=== PATIENT | female | born 1990 | race Caucasian/White ===

== ENCOUNTER 2018-01-02 12:52 | Emergency (ER) | payer OTHER ==
[~2018-01-02] VITALS: Ht 157.5 cm; Wt 72.6 kg
[~2018-01-02 12:52] MED LIST: AMITRIPTYLINE H25 M4; APAP650 PO; CELEXA 10 MG TA10 M1 PO; CELEXA20 MG PO; CIPROFLOXACIN500 M1 PO; CLONAZEPAM 1 MG1 M1; DELTASONE20 MG PO; EFFEXOR 5050 MG/1 T1 PO; EPIPEN 2-P0.3 MG/0.3 IM; FLONASE 0.05%50 MCG NASAL; HYDROCODONE-AP1 EAC6 PO; IBUPROFEN 400400 M2 PO; IBUPROFEN 800800 M1 PO; IBUPROFEN 800800 MG PO; NAPROSYN500 MG PO; NOHOMEMEDICATIONS; NORCO 5-325 TA1 EACH PO; NORFLEX100 MG PO; PENICILLIN VK500 MG PO; PERCOCET 5-3251 EACH PO; PREDNISONE 20 M20 M1 PO; PRENATAL; ROBAXIN500 MG PO; TRINATE TABLET1 TAB PO; ULTRAM 50MG TAB50 MG PO; VENTOLIN HFA 1818 GM INH; VICODIN 5-5001 EACH PO; VICOPROFEN 2001 EAC1 PO; WELLBUTRIN 75 M75 M1 PO; WELLBUTRIN SR150 MG; XANAX 0.5 MG0.5 MG PO; ZOFRAN ODT4 M1 PO; ZPAK PO
[2018-01-02] MEDS ORDERED: LEXAPRO 10 MG T10 M2 PO (13:31)
[2018-01-02] MEDS ORDERED: ADDERALL 10 MG10 MG PO (13:32)
[2018-01-02] MEDS ORDERED: NEURONTIN 300300 M1 PO (13:32)
[2018-01-02] MEDS ORDERED: CLONAZEPAM 0.50.5 M1 PO (13:32)
[2018-01-02] MEDS ORDERED: OXYCONTIN10 M1 PO (13:32)
[2018-01-02] MEDS ORDERED: ASPIRIN325 PO (13:33)
[2018-01-02 13:56] LABS: HEMATOCRIT 37.9 % (37.0-47.0); HEMOGLOBIN 12.6 gm/dL (12.0-15.0); MCH 28.1 pg (26.0-34.0); MCHC 33.4 g/dL (28.0-37.0); MCV 84.2 fL (80.0-100.0); MPV 9.3 fl. (7.2-11.1); NUCLEATED RBCS 0 /100WBC; PLATELET COUNT* 266 thou/uL (150-400); RDW-CV 16.8 % (10.5-14.5); WBC 5.9 thou/uL (4.0-11.0)
[2018-01-02 14:03] LABS: CREATININE 0.7 mg/dL (0.6-1.3)
[2018-01-02 14:07] LABS: ALBUMIN 3.4 g/dL (3.4-5.0); TOTAL BILIRUBIN 0.2 mg/dL (<0.1-1.0); TOTAL PROTEIN 7.5 g/dL (6.4-8.2)
[2018-01-02 14:13] LABS: ABSOLUTE MONOCYTES 0.2 thou/uL (0.0-1.2); ABSOLUTE NEUTROPHILS 2.7 thou/uL (1.6-8.1); PLATELET ESTIMATE ADEQUATE
[2018-01-02 18:11] VITALS: BP 105/59
--- NOTE | 2018-01-21 14:20 | CON ---
[address] [address] CONSULTATION Name: SCAR ENRIQUEZ [id number] Admission: 01/02/18 Attend Phys: Discharge: 01/02/18 Date of : 89 Report #: [id number] THIS REPORT FOR: //name// CC: KASSANDRA physician/PCP Alejandra Haywood DATE OF SERVICE: 01/02/2018 HISTORY OF PRESENT ILLNESS: This 27-year-old female was seen complaining of severe pain of her left leg. She related that she has undergone nonoperative procedures of her left tibia during the past 2 years. She has had procedures performed at [facility], [facility] and the [facility]. She is presently being followed at the [facility]. Three weeks ago, she sustained a fracture of her left tibial metaphysis and underwent an open reduction and internal fixation at . She was seen there for followup last week and had her sutures removed. She was then placed into a long leg cast. She related that she began experiencing increased pain today and presented to the Emergency Room at this institution for evaluation. Upon further questioning, she has been treated for low back pain in an off and on manner since she was a child. She was told that she had scoliosis. She has also noted some numbness into the toes of her left foot. Her present pain is not aggravated by the Valsalva maneuvers such as coughing or sneezing. She stated that she was told that she had a Staph infection by the clinic. She related that she has an appointment to be seen at the Orthopedic Clinic at the [facility] tomorrow. PHYSICAL EXAMINATION: Today revealed a distraught female, who complains of severe pain. Her cast was bivalved. Her leg was then inspected. She has a well-healed surgical wound. There is no redness or inflammatory changes about the wound or her leg. Her tissues are very supple. She has no evidence of compartment syndrome. She complained of marked discomfort with light palpation over the medial aspect of the tibial metaphysis. Motion of her left leg in the cast or splint was painful. Straight leg raising on the right was mildly uncomfortable across her low back. Straight leg raising on the left precipitated severe pain of her left lower leg. She complained of some discomfort over the posterior aspect of her left hip. Her peripheral pulses are normal indicating that her circulatory status appears to be completely normal. This patient was advised that she does not have a compartment syndrome, which would necessitate immediate treatment. She will be continued on a conservative treatment regime. The nursing staff will consult her physician in the Orthopedic Clinic at the [facility] and [place] [address] CONSULTATION Name: SCAR ENRIQUEZ Room: [facility] Isis#: [id number] Admission: 01/02/18 Attend Phys: Discharge: 01/02/18 Date of : 89 Report #: [id number] DIAGNOSES: Radiculopathy versus neuropathy of the left lower leg, thoracolumbar scoliosis, degenerative lumbar disk disease, postop left tibial fracture. <ELECTRONICALLY SIGNED> By: Christofer Capellan MD 01/21/18 1420 1654 [id number] Capellan MD /nt
== END 2018-01-02 18:11 | disposition short-term general hospital (02) ==
LOC: M.ERS 12:52
PROVIDERS: Physician Assistant
DX: G89.18 Other acute postprocedural pain (principal); M79.672 Pain in left foot; J45.909 Unspecified asthma, uncomplicated; Z90.49 Acquired absence of other specified parts of digestive tract; Z88.5 Allergy status to narcotic agent; Z88.8 Allergy status to other drugs, medicaments and biological substances

== ENCOUNTER 2018-03-25 09:42 | Emergency (ER) | payer OTHER ==
[~2018-03-25] VITALS: Ht 160 cm; Wt 76.2 kg
[~2018-03-25 09:42] MED LIST changes: +ADDERALL 10 MG10 MG PO; +ASPIRIN325 PO; +CLONAZEPAM 0.50.5 M1 PO; +LEXAPRO 10 MG T10 M2 PO; +NEURONTIN 300300 M1 PO; +OXYCONTIN10 M1 PO
[2018-03-25] MEDS ORDERED: VENTOLIN HFA 1818 GM INH ×2 (09:53→10:21)
[2018-03-25] MEDS ORDERED: NORCO 5-325 TA1 EACH PO (10:21)
[2018-03-25] MEDS ORDERED: PREDNISONE 20 M20 M1 PO (10:21)
[2018-03-25 11:03] VITALS: BP 115/78
== END 2018-03-25 11:06 | disposition home or self-care (01) ==
LOC: M.ERS 09:42
DX: J45.901 Unspecified asthma with (acute) exacerbation (principal); J45.909 Unspecified asthma, uncomplicated; Z90.89 Acquired absence of other organs; Z98.890 Other specified postprocedural states; Z90.49 Acquired absence of other specified parts of digestive tract; Z88.6 Allergy status to analgesic agent; Z91.010 Allergy to peanuts; Z88.0 Allergy status to penicillin; Z88.8 Allergy status to other drugs, medicaments and biological substances

== ENCOUNTER 2018-05-12 16:57 | Emergency (ER) | payer OTHER ==
[~2018-05-12] VITALS: Ht 160 cm; Wt 77.6 kg
[2018-05-12] MEDS ORDERED: NEURONTIN 300300 M1 PO (17:14)
[2018-05-12] MEDS ORDERED: BACTRIM DS TAB1 EACH PO (17:55)
[2018-05-12] MEDS ORDERED: HYDROCODON-ACE1 EAC7 PO (17:55)
[2018-05-12 18:10] VITALS: BP 116/80
== END 2018-05-12 18:12 | disposition home or self-care (01) ==
LOC: M.ERS 16:57
DX: S80.12XA Contusion of left lower leg, initial encounter (principal); J45.909 Unspecified asthma, uncomplicated; Z90.49 Acquired absence of other specified parts of digestive tract; Z86.14 Personal history of Methicillin resistant Staphylococcus aureus infection; M32.9 Systemic lupus erythematosus, unspecified; Z88.0 Allergy status to penicillin; Z88.5 Allergy status to narcotic agent; Z88.6 Allergy status to analgesic agent; Z88.8 Allergy status to other drugs, medicaments and biological substances; Z91.010 Allergy to peanuts; X58.XXXA Exposure to other specified factors, initial encounter; Y93.89 Activity, other specified; Y92.89 Other specified places as the place of occurrence of the external cause; Y99.8 Other external cause status

== ENCOUNTER 2018-06-05 13:16 | Emergency (ER) | payer OTHER ==
[~2018-06-05] VITALS: Ht 160 cm; Wt 68.5 kg
[~2018-06-05 13:16] MED LIST changes: +BACTRIM DS TAB1 EACH PO; +HYDROCODON-ACE1 EAC7 PO
[2018-06-05 14:11] LABS: AMP/METHAMP Negative (Negative); BARBITURATES Negative (Negative); BENZODIAZEPINES POSITIVE (Negative); COCAINE Negative (Negative); METHADONE Negative (Negative); OPIATES POSITIVE (Negative); PCP Negative (Negative); THC Negative (Negative)
[2018-06-05 15:22] VITALS: BP 115/69
== END 2018-06-05 15:23 | disposition home or self-care (01) ==
LOC: M.ERS 13:16
PROVIDERS: Nurse Practitioner Family
DX: M79.605 Pain in left leg (principal); S09.90XA Unspecified injury of head, initial encounter; J45.909 Unspecified asthma, uncomplicated; Z90.49 Acquired absence of other specified parts of digestive tract; M32.9 Systemic lupus erythematosus, unspecified; Z98.890 Other specified postprocedural states; Z88.5 Allergy status to narcotic agent; Z88.0 Allergy status to penicillin; Z88.6 Allergy status to analgesic agent; Z91.010 Allergy to peanuts; W10.9XXA Fall (on) (from) unspecified stairs and steps, initial encounter; Y93.89 Activity, other specified; Y92.89 Other specified places as the place of occurrence of the external cause; Y99.8 Other external cause status

== ENCOUNTER 2018-06-08 03:51 | Emergency (ER) | payer OTHER ==
[~2018-06-08] VITALS: Ht 162.6 cm; Wt 77.1 kg
[2018-06-08] MEDS ORDERED: CLONAZEPAM 1 MG1 M1 PO (03:58)
[2018-06-08 06:07] VITALS: BP 105/54
== END 2018-06-08 06:09 | disposition home or self-care (01) ==
LOC: M.ERS 03:51
DX: S00.83XA Contusion of other part of head, initial encounter (principal); S80.12XA Contusion of left lower leg, initial encounter; Y04.2XXA Assault by strike against or bumped into by another person, initial encounter; Y93.89 Activity, other specified; Y92.89 Other specified places as the place of occurrence of the external cause; Y99.8 Other external cause status; J45.909 Unspecified asthma, uncomplicated; Z90.49 Acquired absence of other specified parts of digestive tract; Z98.890 Other specified postprocedural states; Z86.14 Personal history of Methicillin resistant Staphylococcus aureus infection; M32.9 Systemic lupus erythematosus, unspecified; Z88.5 Allergy status to narcotic agent; Z88.0 Allergy status to penicillin; Z91.010 Allergy to peanuts; Z88.8 Allergy status to other drugs, medicaments and biological substances

== ENCOUNTER 2018-08-22 03:49 | Inpatient (IN) | payer OTHER ==
[2018-08-22] VITALS (15 sets, daily range): BP systolic 97–120; BP diastolic 44–84
[~2018-08-22] VITALS: Ht 160 cm; Wt 86.6 kg
[~2018-08-22 03:49] MED LIST changes: +CLONAZEPAM 1 MG1 M1 PO
[2018-08-22 04:42] LABS: HEMATOCRIT 43.4 % (37.0-47.0); MCH 28.3 pg (26.0-34.0); MCHC 32.3 g/dL (28.0-37.0); MCV 87.4 fL (80.0-100.0); MPV 8.5 fl. (7.2-11.1); RBC 4.97 mil/uL (4.20-5.00); RDW-CV 18.3 % (10.5-14.5); WBC 11.8 thou/uL (4.0-11.0)
[2018-08-22 04:47] LABS: URINE BILIRUBIN NEGATIVE (Negative); URINE BLOOD NEGATIVE (Negative); URINE CLARITY CLEAR; URINE COLOR YELLOW; URINE GLUCOSE-RANDOM 3+ (Negative); URINE KETONES NEGATIVE (Negative); URINE LEUKOCYTES NEGATIVE (Negative); URINE NITRITE NEGATIVE (Negative); URINE PROTEIN NEGATIVE (Negative); URINE SPECIFIC GRAVITY 1.025 (1.005-1.030); URINE UROBILINOGEN 0.2 E.U./dl (0.2-1.0)
[2018-08-22 04:54] LABS: AMP/METHAMP POSITIVE (Negative); BARBITURATES POSITIVE (Negative); BENZODIAZEPINES Negative (Negative); COCAINE Negative (Negative); METHADONE POSITIVE (Negative); OPIATES POSITIVE (Negative); PCP Negative (Negative); THC POSITIVE (Negative)
[2018-08-22 04:56] LABS: CALCIUM 9.1 mg/dL (8.5-10.1); CREATININE 1.3 mg/dL (0.6-1.3); POTASSIUM 3.3 mmol/L (3.5-5.1)
[2018-08-22 05:01] LABS: ALBUMIN 4.1 g/dL (3.4-5.0); TOTAL BILIRUBIN 0.3 mg/dL (<0.1-1.0); TOTAL PROTEIN 8.4 g/dL (6.4-8.2)
[2018-08-22 05:15] LABS: ACETAMINOPHEN < 2 ug/mL (10-30); ALCOHOL < 10 mg/dL (<10)
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
--- NOTE | 2018-08-22 14:33 | EKG ---
[place] [address] ELECTROCARDIOGRAM REPORT Name: SCAR ENRIQUEZ Room: [address] ADM IN M.R.#: [id number] Admission: 08/22/18 Attend Phys: David Worley MD Discharge: Date of : 89 Report #: [id number] THIS REPORT FOR: //name// [facility] ED Test Date: 2018-08-22 Test Time: 04:39:39 Pat Name: SCAR ENRIQUEZ Department: Room: [facility] Gender: F Art Supervisor: JACOB : 1990 Requested By: Alejandra Solomon Order Number: [id number] MD: Juan Jose Steward Measurements Intervals [place] Rate: 105 P: 67 CT: 142 QRS: -12 QRSD: 87 T: 93 QT: 349 QTc: 462 Interpretive Statements Sinus tachycardia Borderline T wave abnormalities Baseline wander in lead(s) V2 No previous ECG available for comparison Electronically Signed On 08-22-2018 14:33:04 SENIOR OPERATOR by Juan Jose Steward [email or web address] <ELECTRONICALLY SIGNED> By: Juan Jose Steward MD, [facility] 08/22/18 1433 0439 [id number] Juan Jose Steward MD, FAC /EPI
--- NOTE | 2018-08-22 18:39 | NUR ---
PT NOT PROGRESSING TOWARD GOALS. RECEIVED REPORT FROM NAGA AT 1600. PT WAS SLEEPING WITH GRANDMOTHER IN THE ROOM. PT WAS ON ELIZABETH MASK FOR OXYGEN. AT 1820 PT APPEARED BASILIO WITH BLUE LIPS. CHANGED OXYGEN TO NON-REBREATHER. PTS SKIN BECAME PINK AND APPEARED TO BE OXYGENATING. ABG'S ARE BEING CALLED INTO PHYSICIAN.
[2018-08-22 18:40] LABS: BE -6.4 mmol/L (-2 to +3); HCO3 24.6 mmol/L (22.0-26.0); PO2 112.6 mmHg (75.0-100.0)
[2018-08-22 18:41] LABS: PCO2 79.9 mmHg (35.0-45.0); pH 7.107 (7.340-7.450)
[2018-08-22 21:20] LABS: BE -2.8 mmol/L (-2 to +3); HCO3 21.4 mmol/L (22.0-26.0); PCO2 34.8 mmHg (35.0-45.0); pH 7.406 (7.340-7.450)
[2018-08-22 21:21] LABS: PO2 161.7 mmHg (75.0-100.0)
--- NOTE | 2018-08-22 22:04 | NUR ---
RECIEVED REPORT AND ASSUMED CARE OF PT AT 1930. PT INTUBATED AT 1900 PER ED PHYSICAN. PT INTUBATED WITH 7.5 ET TUBE 24 CM AT LIP. RECIEVED ORDERS FOR FENTANYL AND VERSED DRIP FOR SEDATION. PT GIVEN 2 LITER LR FLUID BOLUS PER DR ARMENTA. PORTABLE CHEST XRAY TAKEN TO CONFIRM ET AND OG TUBE PLACEMENT. PT PLACED IN BILATERAL SOFT WRIST RESTRAINTS TO MAINTAIN ET AND OG TUBE. RITCHIE CATHETER PLACED FOR ACCURATE I&O WHILE INTUBATED. 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 UPDATE GIVEN AND EVENTS LEADING UP TO INTUBATION.
--- NOTE | 2018-08-22 22:32 | NUR ---
SPOKE WITH DR PAL REGARDING PULMONARY CONSULT FOR VENTILATOR MANAGEMENT. REPORTED ABG RESULTS ONE HOUR POST INTUBATION AND CURRENT VENTILATOR SETTINGS.REPORTED REASON FOR ADMISSION AND NEED FOR INTUBATION. NO ORDERS RECIEVED.
--- NOTE | 2018-08-22 23:45 | NUR ---
AT 2300 PT SITTING STRAIGHT UP IN BED ATTEMPTING TO SELF EXTUBATE. SPOKE WITH DR PAL AND RECIEVED ORDERS TO INCREASE FENTANYL AND VERSED DRIP.
[2018-08-23] VITALS (28 sets, daily range): BP systolic 88–151; BP diastolic 40–84
--- NOTE | 2018-08-23 00:39 | NUR ---
CALLED DR ARMENTA AND REPORTED CORE TEMP 100.8. RECIEVED ORDERS.
[2018-08-23 02:07] LABS: HEMATOCRIT 29.2 % (37.0-47.0); MCH 28.8 pg (26.0-34.0); MCHC 34.1 g/dL (28.0-37.0); MCV 84.7 fL (80.0-100.0); MPV 8.5 fl. (7.2-11.1); RBC 3.45 mil/uL (4.20-5.00); RDW-CV 18.5 % (10.5-14.5); WBC 8.1 thou/uL (4.0-11.0)
[2018-08-23 02:17] LABS: ALBUMIN 2.9 g/dL (3.4-5.0); CALCIUM 8.1 mg/dL (8.5-10.1); CREATININE 0.7 mg/dL (0.6-1.3); MAGNESIUM 1.7 mg/dL (1.8-2.4); POTASSIUM 3.2 mmol/L (3.5-5.1); TOTAL BILIRUBIN 0.4 mg/dL (<0.1-1.0); TOTAL PROTEIN 5.3 g/dL (6.4-8.2)
[2018-08-23 05:53] LABS: HCO3 22.3 mmol/L (22.0-26.0); PCO2 32.3 mmHg (35.0-45.0); PO2 118.7 mmHg (75.0-100.0); pH 7.457 (7.340-7.450)
--- NOTE | 2018-08-23 14:36 | 2DMMODE ---
[place] [address] 2 D/M-MODE ECHOCARDIOGRAM Name: SCAR ENRIQUEZ Room: [address] IN [facility]#: [id number] Admission: 08/22/18 Attend Phys: David Worley MD Discharge: Date of : 89 Date of Service: 08/23/18 1436 Report #: [id number] THIS REPORT FOR: //name// APPROVED REPORT Study performed: 08/23/2018 11:47:32 EXAM: Comprehensive 2D, Doppler, and color-flow Echocardiogram Patient Location: In-Patient Room #: [facility] Status: routine BSA: 1.80 HR: 89 bpm BP: 119/56 mmHg Rhythm: NSR Other Information Study Quality: Good Indications Dyspnea 2D Dimensions IVSd: 8.25 (7-11mm) LVOT Diam: 19.92 (18-24mm) LVDd: 38.14 mm PWd: 8.46 (7-11mm) LVDs: 24.62 (25-40mm) Aortic Root: 27.13 mm Volumes Left Atrial Volume (Systole) LA ESV Index: 24.20 mL/m2 Aortic Valve AoV Peak David.: 1.22 m/s AO Peak Gr.: 5.98 mmHg LVOT Max P.69 mmHg AO Mean Gr.: 3.15 mmHg LVOT Mean P.38 mmHg LVOT Max V: 1.19 m/s AO V2 VTI: 21.15 cm LVOT Mean V: 0.69 m/s ZOË (VTI): 3.16 cm2 LVOT V1 VTI: 21.44 cm Mitral Valve E/A Ratio: 1.96 MV Decel. Time: 215.48 ms MV E Max David.: 1.10 m/[place] [address] 2 D/M-MODE ECHOCARDIOGRAM Name: SCAR ENRIQUEZ Room: [address] IN [facility]#: [id number] Admission: 08/22/18 Attend Phys: David Worley MD Discharge: Date of : 91 Date of Service: 08/23/18 1436 Report #: [id number] MV PHT: 62.49 ms MVA (PHT): 3.52 cm2 TDI E/Lateral E': 5.24 E/Medial E': 6.47 Medial E' David.: 0.17 m/s Lateral E' David.: 0.21 m/s Pulmonary Valve PV Peak David.: 0.91 m/s PV Peak Gr.: 3.33 mmHg Left Ventricle The left ventricle is normal size. There is normal LV segmental wall motion. There is normal left ventricular wall thickness. Left ventricular systolic function is normal. The left ventricular ejection fraction is within the normal range. LVEF is 55-60%. The left ventricular diastolic function is normal. Right Ventricle The right ventricle is normal size. The right ventricular systolic function is normal. Atria The left atrium size is normal. The right atrium size is normal. Aortic Valve The aortic valve is normal in structure. No aortic regurgitation is present. There is no aortic valvular stenosis. Mitral Valve The mitral valve is normal in structure. There is no mitral valve regurgitation noted. No evidence of mitral valve stenosis. Tricuspid Valve The tricuspid valve is normal in structure. Trace tricuspid regurgitation. Unable to assess PA pressure. Pulmonic Valve Pulmonic valve is not well visualized. There is no pulmonic valvular regurgitation. Great Vessels The aortic root is normal in size. IVC is normal in size and collapses >50% [place] [address] 2 D/M-MODE ECHOCARDIOGRAM Name: SCAR ENRIQUEZ Room: [address] IN [facility]#: [id number] Admission: 08/22/18 Attend Phys: David Worley MD Discharge: Date of : 89 Date of Service: 08/23/18 1436 Report #: [id number] Pericardium There is no pericardial effusion. <Conclusion> Left ventricular systolic function is normal. The left ventricular ejection fraction is within the normal range. <ELECTRONICALLY SIGNED> By: René Garland MD, FACC 08/23/18 1436 1436 1436 René Garland MD, FACC /INF
[2018-08-24] VITALS (11 sets, daily range): BP systolic 101–145; BP diastolic 58–91
[2018-08-24 04:03] LABS: ALBUMIN 2.8 g/dL (3.4-5.0); CALCIUM 8.5 mg/dL (8.5-10.1); CREATININE 0.8 mg/dL (0.6-1.3); POTASSIUM 4.6 mmol/L (3.5-5.1); TOTAL BILIRUBIN 0.2 mg/dL (<0.1-1.0); TOTAL PROTEIN 6.2 g/dL (6.4-8.2)
[2018-08-24 04:06] LABS: NUCLEATED RBCS 0 /100WBC
[2018-08-24 04:38] LABS: MCH 28.2 pg (26.0-34.0); MCHC 32.6 g/dL (28.0-37.0); MCV 86.4 fL (80.0-100.0); MPV 9.4 fl. (7.2-11.1); PLATELET COUNT* 247 thou/uL (150-400); RBC 4.29 mil/uL (4.20-5.00); RDW-CV 19.2 % (10.5-14.5); WBC 9.2 thou/uL (4.0-11.0)
--- NOTE | 2018-08-24 05:02 | NUR ---
PT. PROGRESSING TOWARDS GOALS. PRECEDEX GTT AT MAX DOSE, PT. STILL CONTINUES TO HAVE EPISODES OF RESTLESSNESS/AGITATION. BILAT SOFT WRIST RESTRAINTS REMAIN IN PLACE. OG TO LIS. VERSED GTT AT 4MG/HR, FENTANYL GTT AT 25MCG/HR. IVF REMAIN INFUSING, WILL CONTINUE TO MONITOR.
[2018-08-24 05:29] LABS: HEMOGLOBIN 12.1 gm/dL (12.0-15.0)
[2018-08-24 06:02] LABS: ABSOLUTE LYMPHOCYTES 0.8 thou/uL (0.8-5.3); ABSOLUTE MONOCYTES 0.3 thou/uL (0.0-1.2); ABSOLUTE NEUTROPHILS 8.1 thou/uL (1.6-8.1); ANISOCYTOSIS 1+; PLATELET ESTIMATE ADEQUATE; POIKILOCYTOSIS 1+
[2018-08-24 10:20] LABS: BE -5.3 mmol/L (-2 to +3); HCO3 18.4 mmol/L (22.0-26.0); PCO2 30.6 mmHg (35.0-45.0); PO2 122.3 mmHg (75.0-100.0); pH 7.398 (7.340-7.450)
--- NOTE | 2018-08-24 10:46 | NUR ---
PT EXTUBATED 1040 AM. PT CURRENTLY ON PRECEDEX FOR AGGITATION. PT NO CURRENLTY ON OXYGEN, MAINTAINING AIRWAY. MOTHER AND GRANDMOTHER AT BEDSIDE
--- NOTE | 2018-08-24 19:28 | NUR ---
PT NOT PROGRESSING TOWARD GOALS. PT CURRENTLY OFF OF PRECEDEX. PT VERY SAD AND AGITATED WITH FAMILY. FAMILY ASKED TO GIVE THE PT TIME TO REST THIS EVENING. FAMILY STATED THEY WOULD BE BACK IN THE MORNING. PT STATED THEY ARE WORRIED PT WILL LEAVE AMA AND NOT GO TO REHAB FACILITY. PT ASKS FOR NARCOTICS. PT WAS GIVEN ATIVAN FOR AGGITATION. PT STILL MAKING STATEMENTS OF LEAVING AMA TOMORROW.
[2018-08-25] VITALS (12 sets, daily range): BP systolic 109–141; BP diastolic 57–93
[2018-08-25 04:09] LABS: ABSOLUTE LYMPHOCYTES 1.1 thou/uL (0.8-5.3); ABSOLUTE NEUTROPHILS 9.5 thou/uL (1.6-8.1); BASOPHILS 0.3 %; EOSINOPHILS 0.1 %; HEMATOCRIT 36.3 % (37.0-47.0); HEMOGLOBIN 11.9 gm/dL (12.0-15.0); LYMPHOCYTES 9.5 %; MCH 27.9 pg (26.0-34.0); MCHC 32.7 g/dL (28.0-37.0); MCV 85.4 fL (80.0-100.0); MONOCYTES 8.3 %; MPV 9.1 fl. (7.2-11.1); NUCLEATED RBCS 0 /100WBC; PLATELET COUNT* 280 thou/uL (150-400); POLYS 81.8 %; RBC 4.25 mil/uL (4.20-5.00); WBC 11.6 thou/uL (4.0-11.0)
[2018-08-25 04:25] LABS: ALBUMIN 2.9 g/dL (3.4-5.0); CALCIUM 8.4 mg/dL (8.5-10.1); CREATININE 0.8 mg/dL (0.6-1.3); MAGNESIUM 1.9 mg/dL (1.8-2.4); POTASSIUM 4.3 mmol/L (3.5-5.1); TOTAL BILIRUBIN 0.2 mg/dL (<0.1-1.0); TOTAL PROTEIN 6.1 g/dL (6.4-8.2)
--- NOTE | 2018-08-25 06:43 | NUR ---
Pt anxious, tearful, and agitated during early part of manager sourcing. Pt using call light frequently, asking for something to make her sleep. Pt argumentative, asking multiple questions rapid-fire. Precedex started, and soon titrated to max dose. Pt requested phone to call "boyfriend/dealer" so she could "get some drugs" since Precedex was "not working." Pt attempted to call at least two people, then slammed the phone down in apparent frustration. States no one will come to "pick me up." Pt son afterward was asleep, snoring. VSS. Pt awakens easily to touch or verbal stimulation, but now oriented to self only. (Prior to Precedex, pt A&O X4.) On 2L O2. Not progressing toward goals.
--- NOTE | 2018-08-25 08:25 | NUR ---
8915 ASSUMED CARE OF PATIENT. PLEASE SEE DOCUMENTED ASSESSMENT. PT IS ON PRECEDEX DRIP. SINUS BILL
--- NOTE | 2018-08-25 08:26 | NUR ---
PT ADMITS TO NECK DISCOMFORT. GIVEN SCHEDULED MEDS. MOTHER CALLED TO CHECK ON PT
--- NOTE | 2018-08-25 09:59 | NUR ---
12 LEAD EKG DONE AND REVEALS SINUS RHYTHM
--- NOTE | 2018-08-25 10:15 | NUR ---
DR DEVI TO SEE PATIENT. PATIENT CAN GO TO TELEMETRY WHEN OFF OF PRECEDEX. TITRATING PRECEDEX. DR FRAZIER TO SEE PATIENT
--- NOTE | 2018-08-25 11:14 | CON ---
[address] [address] CONSULTATION Name: ZOESCAR CHAKRABORTY Room: [address] IN M.R.#: [id number] Admission: 08/22/18 Attend Phys: David Worley MD Discharge: Date of : 89 Report #: [id number] THIS REPORT FOR: //name// CC: KASSANDRA physician/PCP David Worley CONSULT REQUESTED BY: Hospitalist Service. INDICATION FOR CONSULTATION: Acute respiratory failure secondary to drug overdosage. The patient had significant hypercapnia initially. HISTORY OF PRESENT ILLNESS: A 27-year-old female, past medical history does include a history of polysubstance abuse as well as bronchial asthma. It is not known to me as to whether she smokes. The patient was admitted yesterday with altered mental status. Initially, in fact, she did not require to be endotracheally intubated as she already was improving, in fact was maintaining O2 saturation on 2 liters oxygen via nasal cannula. The patient's mental status subsequently declined. Note that the patient is reported to have taken methadone shortly prior to getting admitted here and therefore the possibility that this could have been secondary to delayed absorption of methadone was considered. Alternately, the possibility that the patient may have consumed more drugs while she was here was also considered. Note that on presentation, she had tested positive for opiates, methadone, barbiturates, amphetamines as well as marijuana. Her alcohol level, however, was negative. Upon developing altered mental status again yesterday, the patient did have an arterial blood gas performed, which showed hypercapnia with a pH of 7.107 and pCO2 rising to 80. The patient at that time was endotracheally intubated. Overnight, the patient has been on the ventilator. She has been oxygenating and ventilating adequately. She is maintaining blood pressure, although the patient's blood pressure has been on the lower side. She had a high-grade fever overnight up to 38.2 degrees Celsius. The patient is actively bronchospastic at the time of my examination. The patient is on the ventilator and therefore is unable to provide a further history or review of systems. No family is immediately available either. PAST MEDICAL HISTORY: Bronchial asthma; polysubstance abuse, has been to a methadone clinic in the past; 3, para 2; tonsillectomy; ; appendectomy; other orthopedic surgeries; C. difficile colitis; cholecystectomy; multiple left leg surgery. She was tested positive for MRSA colonization in 10/2017. Depression and anxiety. The patient has had a previous admission to this hospital with severe laryngeal spasm. 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 Possible history of lupus and also [place] [address] CONSULTATION Name: ZOESCAR Room: [address] IN [facility].#: [id number] Admission: 08/22/18 Attend Phys: David Worley MD Discharge: Date of : 89 Report #: [id number] SOCIAL HISTORY: She has a history of polysubstance abuse as mentioned above. It is not known to me as to whether and if so, how much alcohol the patient consumes. She is not reported to be under the influence of alcohol at the time of presentation, also not known as to whether she smokes. ALLERGIES: PENICILLINS, PEANUTS, COMPAZINE, MORPHINE, TRAMADOL AND KETOROLAC are mentioned as allergies. Note that the patient tolerates cephalosporins without any reactions. Note also that she has tolerated fentanyl without any reactions and does have a history of other opiate use. CURRENT MEDICATIONS: List in [facility] reviewed. HOME MEDICATIONS: Previous list is in [facility], reviewed. Obviously, the patient is not able to update the list. Clonazepam is noted to have been prescribed for her in addition to her possibly being at a Methadone Clinic. FAMILY HISTORY: There is no pertinent family history known at this time. PHYSICAL EXAMINATION: GENERAL: She is sedated with Versed 10 and fentanyl at 150. She still is moving all extremities, is obviously bronchospastic. VITAL SIGNS: Has a pulse of 90 and a blood pressure of 116/50. She is saturating 99%. She is on 35% FiO2 with a tidal volume of 550 and AC rate set at 15. She is not overbreathing the ventilator. The PEEP is set at 5. She has had a high-grade fever overnight with a temperature rising to 38.2. She has a low grade fever of 37.5 now. HEENT: Head is normocephalic and atraumatic. Pupils are bilaterally constricted, but reactive. There is an endotracheal tube in place, which is low and close to the kera. NECK: Does not show raised JVP, asymmetry, mass or lymph nodes. CHEST: Symmetrical expansion on inspection and palpation. On auscultation, loud wheezes, inspiratory as well as expiratory, more expiratory wheezes are heard. HEART: Regular. There is no murmur. ABDOMEN: Soft and nontender. EXTREMITIES: Lower extremities show no edema and no calf tenderness on the right side. There is 1+ edema on the left side. There is old injury to the left leg noted. There is no obvious calf tenderness. SKIN: Dry and intact. NEUROLOGICAL: She moves all extremities bilaterally equally and spontaneously with no focal deficit identified. The patient has had chest x-rays performed. There are vague radiopaque densities noted bilaterally. Therefore, I cannot completely rule out an increase in vascular congestion or infiltrates; low large infiltrates are seen, however, the endotracheal tube is at the kera. The x-ray of the abdomen is consistent with an ileus, likely secondary to narcotic use. There is also significant [place] [address] CONSULTATION Name: ZOESCARSULTANA HALEY Room: [address] IN [facility].#: [id number] Admission: 08/22/18 Attend Phys: David Worley MD Discharge: Date of : 89 Report #: [id number] LABORATORY DATA: The patient's arterial blood gases, which initially showed acute hypercarbic respiratory failure with subsequent development of a metabolic alkalosis secondary to hypokalemia also in [facility], reviewed. CBC, which does show a drop in hemoglobin, likely dilutional as well as chemistries, which are consistent with adequate hydration, but hypokalemia and hypomagnesemia in [facility] reviewed. Toxicology screen positive for multiple agents as mentioned. Urinalysis is negative except is positive for glucose. ASSESSMENT AND PLAN: 1. Acute hypercarbic respiratory failure secondary to drug overdosage. I recommend that she go ahead and start Precedex and gradually increasing it to the max dose of 1.4. Recommend administering Precedex without bolus. Once the patient has been started on Precedex, I recommended backing off on fentanyl and Versed infusions to the extent possible; however, the patient does appear to continue to need these for now. Tomorrow morning, the plan is to keep the patient on max doses of Precedex and attempt to reduce Versed and fentanyl further, however, I feel that we may not be able to discontinue them with a low dose of Versed and fentanyl, and max doses of Precedex. The plan is to proceed to a weaning trial tomorrow morning and evaluating as to where we stand. 2. Drug overdosage/polysubstance abuse. See discussion above. 3. Severe bronchospasm. The patient is actively bronchospastic at this time; therefore, in addition to continuing with nebulized bronchodilators as currently prescribed, I will go ahead and treat her with solo Medrol as well. In fact, we will go ahead and add Brovana also. 4. Fever, high grade, could be drug induced, no obvious source of infection. Note, that she has a history of C. difficile colitis as well as MRSA colonization in the past. She is on ceftriaxone and vancomycin. I will continue the same for now. Considering her previous history of C. difficile colitis as well as the fact that I cannot completely rule out aspiration, I will go ahead and add Flagyl. We will reevaluate antibiotics tomorrow. 5. Ileus/gastric distention. The patient's x-ray of the abdomen is consistent with narcotic-induced ileus. For now, however, she does need fentanyl, although I will try to cut back the dose as mentioned above. We will keep the NG at suction except when she gets meds. I recommend not administering tube feeds at this time for this reason. 6. Hypokalemia and hypomagnesemia in addition to evaluating her pH. This does appear to be contributing to ileus as well. This is already being addressed. Recommend administering both magnesium and potassium intravenously. 7. Asymmetrical edema, more on the left leg, could be secondary to previous injury. Regardless, we will do venous Dopplers and we will also check an echo. 8. Fluid and electrolytes. In order to avoid development of fluid overload and also to avoid development of hypernatremia, I switched her over to D5 half normal at 75. Note the patient's blood pressure has been on the lower side, hopefully this will improve with changes and sedation as mentioned above. However, if the patient is hypotensive, then certainly she could be given more [facility] [address] [place] [address] CONSULTATION Name: SCAR ENRIQUEZ Room: [address] IN [facility]#: [id number] Admission: 08/22/18 Attend Phys: David Worley MD Discharge: Date of : 89 Report #: [id number] fluids. She is ventilating and oxygenating adequately. 9. Deep vein thrombosis prophylaxis. Suggest SCDs. If H and H remains stable, then suggest considering Lovenox. There has been no drop in H and H since yesterday. This is likely dilutional. 10. Gastrointestinal prophylaxis. We will start Protonix intravenously for now. The patient is critically ill at this time. Total time spent providing critical care to this patient today is about 1 hour. <ELECTRONICALLY SIGNED> By: Amando Rollins MD 08/25/18 1114 1134 [id number] Ly MD /nt
--- NOTE | 2018-08-25 11:20 | NUR ---
OFF PRECEDEX. PT THREATENED TO GO AMA UNTIL INFORMED OF WEATHER. PT CAN TRANSFER TO TELE NOW THAT SHE IS OFF OF PRECEDEX. PT ALSO ON ROOM AIR. REGULAR DIET RESUMED. CALLED PTS GRANDFATHER PER HER REQUEST. TALKED TO CASE MANAGEMENT REGARDING PATIENT STATUS
--- NOTE | 2018-08-25 15:51 | NUR ---
PATIENT GIVEN FENTANYL FOR PAIN RATED "9"
--- NOTE | 2018-08-25 17:18 | NUR ---
UP TO VOID. REFUSES TO BRUSH TEETH. GABBIE CARE DONE
--- NOTE | 2018-08-25 18:13 | NUR ---
PATIENT PROGRESSING TOAWARDS GOALS. OFF OF PRECEDEX. TITRATED TO ROOM AIR. RITCHIE OUT AND HAS VOIDED. PT IS UNHAPPY AND OFTEN THREATENS TO LEAVE AMA. DOES NOT WANT TO EAT. VSS. PT IS TELE STATUS. MOTHER, AUNT, AND GRANDFATHER HAVE VISITED
[2018-08-26] VITALS (7 sets, daily range): BP systolic 118–134; BP diastolic 70–80
--- NOTE | 2018-08-26 01:08 | NUR ---
Pt chief complaints have been inability to sleep and headache. Pt vacillates between being tearful and angry, demanding something "to make her sleep." VSS. Has had intermittent nausea with dry heaves, also c/o severe sore throat and pain to head and neck. Pt also has intermittent non-productive cough. Have had multiple discussions with pt regarding her condition and ordered treatments. Paged Dr. Worley, physician sterile preparation technician, and received orders for increased dose and frequency of lorazepam based on pts symptoms and elevated CIWA score (headache, anxiety, agitation, diaphoresis, tachycardia, and elevated BP). Pt c/o pain to LH IV site. Multiple attempts made to establish additional IV site with no success. Have continued to utilize IV. Pt has made multiple threats to leave AMA is she does not receive something to make her sleep. Pt had called Pradeep Razo earlier on the phone, but reports he said he will not come get her. At this time pt attempting multiple phone calls, including to Pradeep, but getting no answers. Pt becoming more verbally belligerent with RN insisting on getting the Precedex she had last night, or she is leaving. Pt has no belongings or clothing with her, and has no means to pay for taxi, Uber, or other method of transportation. Pt also made aware of the cold temperature outside, currently 16 F. Currently pt is alert, oriented X4. HR 94, last BP 124/76. Not diaphoretic or SOA. C/O headache, sore throat, and inability to sleep. Pt just removed pulseox monitor, BP cuff, and SCDs. Pt still attempting to make phone calls to get a ride to no avail. Will continue to monitor.
--- NOTE | 2018-08-26 10:23 | NUR ---
0700 ASSUMED CARE OF PATIENT. SEE DOCUMENTED ASSESSMENT. PT IS TELE STATUS IN THE ICU
--- NOTE | 2018-08-26 12:45 | NUR ---
patient states she is having a panic attack. see CIWA SCORING
--- NOTE | 2018-08-26 14:26 | NUR ---
SW received call from spiritual care regarding pt discussing that she was scared and wanted possible support group/resources and pt had mentioned that she wanted resources in [place]. SW met with pt nurse and provided lists of drug addiction, emotional support, and referral list for assistance on recovering; not specifically [place], but some of the numbers are national numbers. Pt nurse said she would provide to pt as needed.
--- NOTE | 2018-08-26 14:31 | NUR ---
report to bronson lyman. patient to move to room 204
--- NOTE | 2018-08-26 14:55 | NUR ---
TRANSFERRED TO 204 PER WHEELCHAIR WITH ALL RECORDS AND BELONGS. GRANDFATHER NOTIFIED OF TRANSFER
--- NOTE | 2018-08-26 18:29 | NUR ---
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 EQUIPMENT ASSEMBLER DOES THE WINDOW OPEN SHE WANTS TO JUMP OUT THE WINDOW TO KILL HERSELF GROUND SUPPORT EQUIPMENT ASSEMBLER NOTIFIED THIS NURSE WHO NOTIFIED FORM RAISER THIS NURSE SPOKE WITH PT REGARDING STATEMENT STATED THAT WE TAKE THESE THREATS SERIOUSLY PT BECAME UPSET DEFENSIVE SAID SHE WAS NOT SERIOUS, NOTIFIED PHYSICIAN REGARDING STATEMENTS AND PT WANTING TO LEAVE AMA PHYSICIAN ORDERED PSYCH EVAULUATION AND SITTER ROOM STRIPPED PER POLICY PT AGITATED THREATENING STAFF SECURITY NOTIFIED WHO CAME IN ROOM WAS ABLE TO CALM PT GAVE PT XANAX EDUCATED PT THAT RESTRAINTS WILL BE USED IF PT BECOMES VIOLENT PT CALM AND SITTING ON BED SITTER IN WITH PT, PT IS ST ON THE MONITOR, WILL CONTINUE TO MONITOR
--- NOTE | 2018-08-26 22:46 | NUR ---
Pt displaying various mood swings: calm at beginning of shift; angry, and belligerent with sitter and RN shortly afterward; then calm at time of telepsych consult call. Prior to consult, pt had removed monitoring analyst and gown. Pt allowed monitor to be placed but refused gown. Soon afterward she removed monitor again. Pt repeated the following statements multiple times that she is leaving and, "You can't hold me here! I am going to call my securities attorney. I need to go to rehab in [place]. I just want to sleep. I need pain medicine. I don't want to kill myself, I just want to leave!" Telepsych consult completed. Received fax with recommendations. Paged Dr. Mcnamara and briefed him on recommendations including suggestions for medications. Orders submitted. Pt aware that she will remain in hospital until inpatient psychiatry placement is made. Pt states she needs rehab and wants to go to [place] (where she had been before). Pt appears calm at this time. Will continue to monitor.
[2018-08-27 00:25] VITALS: BP 143/83
[2018-08-27 03:38] VITALS: BP 118/55
--- NOTE | 2018-08-27 05:12 | NUR ---
Annabelle reports that pt experienced hallucinations around midnight, stating pt was talking to a eri bear that pt states was "talking to her." Pt asked if sitter could hear it. Sitter reports no other signs of hallucinations for remainder of shift. Pt has remained calm and appeared to be asleep for most of shift. Pt continues to refuse monitor and gown, but cooperative otherwise. Pt ate peanut butter and mikaela crackers, vanilla pudding, and drank some apple juice and a carton of milk per request; which is the most she has eaten since admission on 08/22. Pt reports that she plans to contact her diabetes trainer soon and states that she will be leaving the hospital later today. Also states she wants to go to rehab. VSS. Will contiue to monitor.
[2018-08-27 07:29] LABS: ALBUMIN 3.1 g/dL (3.4-5.0); CALCIUM 8.8 mg/dL (8.5-10.1); CREATININE 0.6 mg/dL (0.6-1.3); MAGNESIUM 2.1 mg/dL (1.8-2.4); POTASSIUM 3.4 mmol/L (3.5-5.1); TOTAL BILIRUBIN 0.2 mg/dL (<0.1-1.0); TOTAL PROTEIN 6.1 g/dL (6.4-8.2)
[2018-08-27 08:00] VITALS: BP 125/66
[2018-08-27 09:45] LABS: HEMATOCRIT 35.5 % (37.0-47.0); HEMOGLOBIN 11.8 gm/dL (12.0-15.0); MCH 28.1 pg (26.0-34.0); MCHC 33.2 g/dL (28.0-37.0); MCV 84.5 fL (80.0-100.0); MPV 8.3 fl. (7.2-11.1); RBC 4.2 mil/uL (4.20-5.00); RDW-CV 18.9 % (10.5-14.5)
[2018-08-27 12:00] VITALS: BP 114/61
[2018-08-27 16:00] VITALS: BP 137/65
--- NOTE | 2018-08-27 16:32 | NUR ---
Spoke with [facility] per Dr. Mcnamara and patient request. Faxed information. They [place].
--- NOTE | 2018-08-27 18:07 | NUR ---
PATIENT RESTING IN BED WITH 1:[address] FOR SI[address] PATIENT IS AWAITING TRANSFER TO [facility] FOR CONTINUED TREATMENT. JACKY DENIES [facility] SI AND HAS NO PLAN BUT DENIES PLAN. BEVERLEY HAS EXPRESSED THE DESIRE TO DISCHARGE TO HOME AND HAS MADE THE COMMENT THAT SHE WANTS TO GET OUT OF HERE SO SHE CAN DO HER DRUGS AND DOESNT WANT ANYTHING TO DO WITH TREATMENT. VITAL SIGNS STABLE ANDPAITNE IN NOAPPARENT SIGNS OF DISTRESS. HOURLY ROUNDING AND 1;1 SITTER DFOR PATIENT SAFETY CONTINUED.
[2018-08-27 20:00] VITALS: BP 122/55
[2018-08-28] VITALS: BP 111/57
[2018-08-28 03:56] VITALS: BP 103/52
--- NOTE | 2018-08-28 04:30 | NUR ---
ASSUMED PT CARE AT 1930. NURSING ASSESSMENT COMPLETED AT START OF SHIFT. EXERCISE PHYSIOLOGIST IN PLACE, TRACING SINUS RHYTHM/SINUS BRADICARDIA THIS SHIFT. PT C/O OPIATE W/D SYMPTOMS THIS SHIFT: NAUSEA, RUNNY NOSE, CHILLS, BODY ACHES. CLONIDINE ADMINISTERED X1. SITTER IN ROOM FOR SUICIDAL IDEATION. HOURY ROUNDING COMLPLETED. CALL LIGHT WITHIN REACH.
--- NOTE | 2018-08-28 10:19 | NUR ---
Pt to have abd US tomorrow. Per weekend report, telepsych assessment completed, Pt needs inpt psych. Updated Dr Phipps. Following for disposition.
--- NOTE | 2018-08-28 11:57 | NUR ---
DIRECTOR REPORT INFORMED THAT THE PATIENT IS MEDICALLY STABLE FOR INPATIENT PSYCH. CONTACTED [facility] AND [facility] AND NEITHER HAD BEDS AVIAILABLE AT THIS TIME. [facility] 'MAY HAVE BEDS AVAILABLE THIS AFTERNOON (SENT REFERRAL). [facility] 'AWAITING DISCHARGES' (SENT REFERRAL). [facility] 'SHOULD HAVE BEDS AVAILABLE THIS AFTERNOON' (SENT REFERRAL). [facility] 'CALL AFTER 1500. MAY HAVE BEDS AVAILABLE AT THAT TIME'. CM WILL REMAIN AVAILABLE TO ASSIST AND FOLLOW NEEDED.
[2018-08-28 16:18] VITALS: BP 93/40
--- NOTE | 2018-08-28 18:15 | NUR ---
PATINET RESTING IN BED. UP STANDBY IN ROOM AND 1:1 SITTER FOR PATINET SAFETY. VITAL SIGNS STABLE AND PATINET IN NO APPARENT DISTRESS AT THIS TIME. PATINET HAS BEEN ACCEPTED TO [facility] AND TRANSPORTAION IS TO BE PROVIDED AT 11:00 PM TONIGHT.PATIET WAS REASSESSED BY PSYCHIATRY TODAY AND THE RECOMMENDATION WAS FOR INPATIENT PSYCH. HOURLY ROUNDING COMPLETED FOR PATINET SAFETY.
[2018-08-28] MEDS ORDERED: SSD25 GM TOP (18:26)
[2018-08-28] MEDS ORDERED: CLONIDINE0.1 PO (18:27)
[2018-08-28] MEDS ORDERED: PREDNISONE 20 M20 MG PO (18:27)
[2018-08-28] MEDS ORDERED: LEVAQUIN 500 M500 M2 PO (18:28)
[2018-08-28 18:50] VITALS: BP 93/40
[2018-08-28 19:30] VITALS: BP 126/81
[2018-08-28 19:42] VITALS: BP 126/81
--- NOTE | 2018-08-28 19:50 | NUR ---
RECIEVED REPORT AND ASSUMED CARE OF PT AT 1930. PT PLEASANT AND COOPERATIVE, TEARFULL AT TIMES. PT UPDATED ON TRANSFER TO [address] [place] [address].
--- NOTE | 2018-08-28 23:02 | NUR ---
PT TAKEN BY [facility] AT 2300 FOR TRANSFER TO [address] [place] [address] FOR INPATIENT TREATMENT. ALL PAPERWORK SIGNED. PT LEFT AT 2300 ON [place] PER PARAMEDICS.
== END 2018-08-28 23:00 | DRG 917 ==
LOC: M.ERS 03:49 → M.TBA-ER 05:30 → M.ICU 05:30 → M.2W 08-26 14:45
PROVIDERS: Family Medicine; Internal Medicine; Internal Medicine Critical Care Medicine; Personal Emergency Response Attendant; ADMIT Family Medicine
PROC: 5A1945Z Respiratory Ventilation, 24-96 Consecutive Hours (ICD-10-PCS; principal; 2018-08-22)
PROC: 0BH17EZ Insertion of Endotracheal Airway into Trachea, Via Natural or Artificial Opening (ICD-10-PCS; principal; 2018-08-22)
DX: T40.3X1A Poisoning by methadone, accidental (unintentional), initial encounter (principal); J96.02 Acute respiratory failure with hypercapnia; K56.7 Ileus, unspecified; E44.0 Moderate protein-calorie malnutrition; T40.601A Poisoning by unspecified narcotics, accidental (unintentional), initial encounter; T42.3X1A Poisoning by barbiturates, accidental (unintentional), initial encounter; J45.909 Unspecified asthma, uncomplicated; F32.9 Major depressive disorder, single episode, unspecified; F41.9 Anxiety disorder, unspecified; K31.89 Other diseases of stomach and duodenum; E87.6 Hypokalemia; E83.42 Hypomagnesemia; F17.210 Nicotine dependence, cigarettes, uncomplicated; G89.29 Other chronic pain; M79.606 Pain in leg, unspecified; Z90.49 Acquired absence of other specified parts of digestive tract; Z88.0 Allergy status to penicillin; Y92.89 Other specified places as the place of occurrence of the external cause; Z88.8 Allergy status to other drugs, medicaments and biological substances; Z88.6 Allergy status to analgesic agent; Z91.010 Allergy to peanuts; Z68.33 Body mass index [BMI] 33.0-33.9, adult; Z79.899 Other long term (current) drug therapy; Z23 Encounter for immunization

== ENCOUNTER 2018-09-14 20:30 | Inpatient (IN) | payer OTHER ==
[~2018-09-14] VITALS: Ht 160 cm; Wt 87.3 kg
[~2018-09-14 20:30] MED LIST changes: +CLONIDINE0.1 PO; +LEVAQUIN 500 M500 M2 PO; +PREDNISONE 20 M20 MG PO; +SSD25 GM TOP
[2018-09-14 20:31] VITALS: BP 126/78
[2018-09-14 20:55] LABS: PCO2 45.9 mmHg (35.0-45.0); PO2 61.3 mmHg (75.0-100.0)
[2018-09-14 20:56] LABS: pH 7.257 (7.340-7.450)
[2018-09-14 20:59] LABS: URINE BILIRUBIN NEGATIVE (Negative); URINE BLOOD NEGATIVE (Negative); URINE CLARITY CLEAR; URINE COLOR YELLOW; URINE GLUCOSE-RANDOM 3+ (Negative); URINE KETONES NEGATIVE (Negative); URINE LEUKOCYTES-REFLEX NEGATIVE (Negative); URINE NITRITE-REFLEX NEGATIVE (Negative); URINE PROTEIN 1+ (Negative); URINE SPECIFIC GRAVITY 1.015 (1.005-1.030); URINE UROBILINOGEN 0.2 E.U./dl (0.2-1.0)
[2018-09-14 21:01] LABS: HEMATOCRIT 41.5 % (37.0-47.0); HEMOGLOBIN 13.2 gm/dL (12.0-15.0); MCH 28.4 pg (26.0-34.0); MCHC 31.7 g/dL (28.0-37.0); MCV 89.5 fL (80.0-100.0); MPV 9.1 fl. (7.2-11.1); NUCLEATED RBCS 0 /100WBC; PLATELET COUNT* 283 thou/uL (150-400); RBC 4.64 mil/uL (4.20-5.00); RDW-CV 18.2 % (10.5-14.5); WBC 10.1 thou/uL (4.0-11.0)
[2018-09-14 21:09] LABS: AMP/METHAMP Negative (Negative); BARBITURATES Negative (Negative); BENZODIAZEPINES POSITIVE (Negative); COCAINE Negative (Negative); METHADONE Negative (Negative); OPIATES POSITIVE (Negative); PCP Negative (Negative); THC POSITIVE (Negative)
[2018-09-14 21:10] LABS: ANION GAP 12 mmol/L (7-16); BUN 11 mg/dL (7-18); CALCIUM 8.4 mg/dL (8.5-10.1); CHLORIDE 105 mmol/L (98-107); CO2 24 mmol/L (21-32); CREATININE 1.3 mg/dL (0.6-1.3); GLUCOSE 356 mg/dL (70-99); POTASSIUM 5.2 mmol/L (3.5-5.1); SODIUM 141 mmol/L (136-145)
[2018-09-14 21:12] LABS: APTT 21.5 Seconds (25.0-31.3)
[2018-09-14 21:15] LABS: ACETAMINOPHEN < 2 ug/mL (10-30); ALCOHOL < 10 mg/dL (<10); SALICYLATE < 2.8 mg/dL (2.8-20.0)
[2018-09-14 21:22] LABS: ALBUMIN 3.4 g/dL (3.4-5.0); ALKALINE PHOSPHATASE 158 U/L (46-116); NT-PRO BRAIN NAT PEPTIDE 220 pg/mL (<300); SGOT 113 U/L (15-37); SGPT 90 U/L (30-65); TOTAL BILIRUBIN 0.3 mg/dL (<0.1-1.0); TOTAL PROTEIN 6.9 g/dL (6.4-8.2); TROPONIN-I LEVEL <0.06 ng/mL (<0.06)
[2018-09-14 21:24] LABS: ABSOLUTE EOSINOPHILS 0.1 thou/uL (0.0-0.7); ABSOLUTE LYMPHOCYTES 1.8 thou/uL (0.8-5.3); ABSOLUTE MONOCYTES 0.2 thou/uL (0.0-1.2)
[2018-09-14 21:25] LABS: ANISOCYTOSIS 1+; PLATELET ESTIMATE ADEQUATE
[2018-09-14 23:26] VITALS: BP 93/48
[2018-09-14 23:48] VITALS: BP 87/43
[2018-09-15] VITALS (40 sets, daily range): BP systolic 71–1136; BP diastolic 31–69
--- NOTE | 2018-09-15 05:23 | NUR ---
PATIENT ARRIVED TO UNIT LAST NIGHT @ 2335 WAS TEARFUL AND CONFUSED ABOUT HER CURRENT SITUATION, UNAWARE WHY SHE WAS IN ICU. PT WAS MORE ALERT NIGHT PROGRESSED. WAS ON THE PHONE WITH BROTHER. HE STATED THAT SHE TOOK TWO TAB OF 60MG OXYCODONE BEFORE SHE WENT UNRESPONSIVE. PT HAS NO RECOLLECTION OF EVENTS THAT TOOK PLACE. SHE HAS SEVERAL ABRASIONS TO FOREHEAD AND NOSE SHE STATED SHE THINKS SHE MIGHT HAVE FALLEN. PT CONTINUES TO SAY "I FEEL SICK I DONT FEEL GOOD" WHEN ASKED TO BE SPECIFIC PT UNAWARE TO VOICE OR CLARIY. BLOOD PRESSURES HAVE BEEN RUNNING SOFT. RITCHIE IN PLACE. BED TO LOWEST POSITION. CALL LIGHT WITHIN REACH. NO FURTHER CONCERNS AT THIS TIME.
[2018-09-15 08:01] LABS: BE -0.9 mmol/L (-2 to +3); HCO3 25.3 mmol/L (22.0-26.0); PO2 111.7 mmHg (75.0-100.0); pH 7.331 (7.340-7.450)
[2018-09-15 08:13] LABS: CALCIUM 7.7 mg/dL (8.5-10.1); CREATININE 0.7 mg/dL (0.6-1.3); MAGNESIUM 2.1 mg/dL (1.8-2.4)
--- NOTE | 2018-09-15 08:30 | NUR ---
PT A/O X'S 4. C/O OF HEADACHE 05/26. PRN TYLENOL ADMININSTERED PER DEC. PT ASKING IF NOSE AND EYES ARE SWOLLEN. NOT EDEMA NOTED. PT ATE ABOUT 60% BREAKFAST. PT A/O X'S 4. FOREGETFUL. PT ASKING IF GOING TO BE INTUBATED AGAIN. VSS. AFEBRILE. WILL CONTINUE PLAN OF CARE.
[2018-09-15 08:31] LABS: POTASSIUM 3.8 mmol/L (3.5-5.1)
--- NOTE | 2018-09-15 10:27 | NUR ---
AT ABOUT 0930 WENT INTO PT'S ROOM. PT UNRESPONSIVE, PURPLE, FOAMING AT MOUTH, OXYGEN SATURATION IN 40'S. ER PAGED, DR JOHNSON PAGED, RT PAGED. NARCAN ADMINISTERED PT CAME TO, OXYGEN INCREASED. PT NOW ON 6L O2 WITH CO2 MONITOR. PRN NARCAN ORDERED. PT CAME TO AND ALERT TO PERSON, PLACE, YEAR, MONTH, AND DAY OF WEEK. 20 MINUTES LATER PT ALERT TO PERSON, YEAR AND MONTH, PT DROWSY. BP 103/57, 96% ON 6LNC. WILL CONTINUE TO MONITOR.
--- NOTE | 2018-09-15 10:30 | NUR ---
CM UNABLE TO SEE PT. SHE WAS SLEEPING AND GROGGY. PER NURSING SHE HAD AN EPISODE OF LOW O2 SATS EARLIER AFTER SOME PO MEDICAITON. IS ON 6L/NC OF O2 AT THIS TIME. PT.KNOW FROM PREVIOUS ADMISSION WITH DISCHARGE TO INPT.PSYCH ON 08/28. WILL SEE AT A LATER TIME.
--- NOTE | 2018-09-15 11:10 | NUR ---
Nutrition: Consult for poor intake. Pt admitted with drug OD. H/o SI. Wt: 192#. Ate 60% of BKFST this morning, then found foaming at mouth, given narcan and now reoriented, per ICU rounds. 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 Albumin 3.4. Nutritionally, no concerns at this time. Will continue to follow for POC and any changes in status, possible need for nutrition interventions. Low nutrition risk at this time.
--- NOTE | 2018-09-15 11:52 | NUR ---
PT UNRESPONSIVE. PT STERNAL RUBBED. PT HAD MINIMAL RESONSE BY MOVING HEAD. PAGESara AND NOTIFIED. RECEIVED ORDER TO INCREASE PRN NARCAN TO 2MG AND GIVE ONE DOSE NOW. ORDER FOLLOWED. RECEIVED ORDER FOR NARCAN GTT.
--- NOTE | 2018-09-15 13:11 | NUR ---
NARCAN GTT STARTED. PT LETHARGIC. RESPONSVIE TO STERNAL RUB. PT ATTEMPTING TO OPEN EYES . AT TIMES PT FOLLOWS COMMANDS WITH HANDS. WILL CONTINUE TO MONITOR.
--- NOTE | 2018-09-15 13:53 | NUR ---
ORDER FOR NALOXONE READS MAY TITRATE UP OR DOWN DEPENDING ON PATIENTS RESPONSE. PT HAS MINIMAL RESPONSE TO STERNAL RUB. INCREASED TO 125ML PER HOUR DISCUSSED WITH PHARMACY INCREASE AND THIS IS WITHIN TITRATION RANGE.
--- NOTE | 2018-09-15 14:45 | NUR ---
NARCAN GTT INCREASED TO 150ML/HR. PT NOW TALKING, ASKING TO DRINK WATER AND TALK TO HER BROTHER. PT SAT UP TO 90 DEGREES AND SWALLOWING SAFELY.
--- NOTE | 2018-09-15 17:12 | NUR ---
NARCAN TITRATED TO 75ML/HR. PT TALKING, SITTING UP, EATING, DRINKING. PT C/O OF HEADACHE. TYLENOL ADMININSTERED PER EMAR. PT ASKING REPEATEDLY "DID I FLATLINE?". PT ALSO ASKED, "WHY DID THEY BRING ME HERE?" "IF I HADN'T OF COME TO HOSPITAL WOULD I STILL BE HERE?". RECEIVED CALL FROM PT'S MOTHER OCTAVIO. MOTHER STATED "WE AREN'T BAD PEOPLE, WE TRY TO GET HER HELP". MOTHER TEARFUL ON PHONE ABOUT PT.
--- NOTE | 2018-09-15 19:05 | NUR ---
THE FATHER TO PTS SON CAME IN TO VISIT. PT TEARFUL. ASKED IF PT DID NOT WANT HIM TO VISIT, PT STATED NO.
[2018-09-15 19:12] LABS: GLYCOHEMOGLOBIN (HGB A1C) 4.7 % (4.8-5.6)
[2018-09-15 20:35] LABS: AMP/METHAMP Negative (Negative); BARBITURATES Negative (Negative); BENZODIAZEPINES POSITIVE (Negative); COCAINE Negative (Negative); METHADONE Negative (Negative); OPIATES POSITIVE (Negative); PCP Negative (Negative); THC POSITIVE (Negative)
[2018-09-16] VITALS: BP 114/68
[2018-09-16 02:00] VITALS: BP 118/69
[2018-09-16 04:00] VITALS: BP 106/66
[2018-09-16 04:31] LABS: CALCIUM 8.2 mg/dL (8.5-10.1); CREATININE 0.7 mg/dL (0.6-1.3); MAGNESIUM 2.1 mg/dL (1.8-2.4); POTASSIUM 3.9 mmol/L (3.5-5.1)
--- NOTE | 2018-09-16 05:34 | NUR ---
PATIENT PROGRESSING TOWARDS GOALS. NO ACUTE HEMODYNAMIC CHANGES OVERNIGHT. PT REMAINED ALERT AND ORIENTED OVERNIGHT. NO SINGS OR SYMPTOMS OF RESPIRATORY DEPRESSION. PT VOICED HER FACE HURT AND SHE COULD NOT GET COMFORTABLE IN BED MOST OF THE NIGHT. NARCAN GTT TITRATED DOWN PER PT STATUS. URINE OUTPUT ADEQUATE. BED TO LOWEST POSITION. CALL LIGHT WITHIN REACH. WILL CONTINUE TO MONITOR.
[2018-09-16 06:00] VITALS: BP 124/71
[2018-09-16 07:00] VITALS: BP 118/68
[2018-09-16 08:00] VITALS: BP 112/64
--- NOTE | 2018-09-16 08:00 | NUR ---
PT STATES SHE IS NOT GOING TO GO TO TELE AND PLANS ON LEAVING AMA TODAY. DISCUSSED WITH DR JOHNSON. RITCHIE CATH REMOVED. GAURAV GTT OFF
--- NOTE | 2018-09-16 10:44 | NUR ---
DISCUSSED WITH PT OPIATE ADDICTION. PT STATES SHE IS NOT INTERESTED IN DRUG TREATMENT PROGRAMS SHE HAS RECENTLY BEEN TO ONE. PT INSISTENT THAT SHE ONLY TOOK 1 OXYCODONE AND 1 XANAX WITH 1 BEER. " I DO THAT ALL THE TIME AND I HAVE NEVER HAD A PROBLEM BEFORE" DISCUSSED WITH PT PROBLEMS HER ADDICTION HAS CAUSED IN HER LIFE INCLUDING 2 ICU ADMISSIONS IN THE LAST MONTH. PT STATES "I DON'T KNOW WHY SHE GUYS WANTS ME TO QUIT TAKING PILLS WHEN I HAVE BEEN TAKING THEM ALL THE TIME." ENCOURAGED PT TO SEEK TREATMENT AND DISCUSS HER OPIATE USE WITH HER PCP.
--- NOTE | 2018-09-16 12:00 | NUR ---
PT AWAKE AND ALERT. STATES SHE WANTS TO LEAVE. FRIEND PRESENT. PT DRESSED AND UP IN ROOM WITH STEADY GAIT. IVS REMOVED. PT DRESSED. AMA FORM SIGNED. PT GIVEN LOCAL RESOURCES FOR OPIATE ADDICTION AND RECOVERY. PT LEFT HOSPITAL WITH STEADY GAIT. DR JOHNSON NOTIFIED
--- NOTE | 2018-09-17 15:28 | EKG ---
[place] [address] ELECTROCARDIOGRAM REPORT Name: SCAR ENRIQUEZ Room: [address] [place] M.R.#: [id number] Admission: 09/14/18 Attend Phys: Mony Francois MD Discharge: 09/16/18 Date of : [birth year] Report #: [id number] THIS REPORT FOR: //name// 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: ZURI : 1990 Requested By: Jack Meza Order Number: [id number] MD: Juan Jose Steward Measurements Intervals [place] Rate: 115 P: 55 CT: 157 QRS: 27 QRSD: 92 T: 33 QT: 350 QTc: 484 Interpretive Statements Sinus tachycardia Borderline prolonged QT interval Compared to ECG 08/22/2018 04:39:39 T-wave abnormality no longer present Electronically Signed On 09-17-2018 15:28:48 BALLOON DESIGN PRINTER by Juan Jose Steward [email or web address] <ELECTRONICALLY SIGNED> By: Juan Jose Steward MD, FACC 09/17/18 1528 52 52 Juan Jose Steward MD, FACC /EPI
== END 2018-09-16 12:14 | disposition left against medical advice (07) | DRG 917 ==
LOC: M.ERS 20:30 → M.ICU 22:25 → M.TBA-ER 22:25 → M.ICU 23:21
PROVIDERS: Emergency Medicine Emergency Medical Services; Internal Medicine; ADMIT Internal Medicine
DX: T40.2X1A Poisoning by other opioids, accidental (unintentional), initial encounter (principal); J96.01 Acute respiratory failure with hypoxia; J96.02 Acute respiratory failure with hypercapnia; J45.909 Unspecified asthma, uncomplicated; F32.9 Major depressive disorder, single episode, unspecified; F19.10 Other psychoactive substance abuse, uncomplicated; Z88.0 Allergy status to penicillin; Z88.8 Allergy status to other drugs, medicaments and biological substances; Z88.6 Allergy status to analgesic agent; Z90.49 Acquired absence of other specified parts of digestive tract; Z91.010 Allergy to peanuts; Z79.899 Other long term (current) drug therapy; F17.210 Nicotine dependence, cigarettes, uncomplicated; F41.1 Generalized anxiety disorder; R73.9 Hyperglycemia, unspecified; E66.9 Obesity, unspecified; Z68.34 Body mass index [BMI] 34.0-34.9, adult; Z53.21 Procedure and treatment not carried out due to patient leaving prior to being seen by health care provider; Y92.89 Other specified places as the place of occurrence of the external cause

== ENCOUNTER 2019-11-18 04:46 | Emergency (ER) | payer OTHER ==
[~2019-11-18] VITALS: Ht 154.9 cm; Wt 81.7 kg
[2019-11-18 04:52] VITALS: BP 120/80
[2019-11-18 05:04] LABS: URINE BILIRUBIN NEGATIVE (Negative); URINE BLOOD NEGATIVE (Negative); URINE CLARITY CLEAR; URINE COLOR YELLOW; URINE GLUCOSE-RANDOM NEGATIVE (Negative); URINE KETONES NEGATIVE (Negative); URINE LEUKOCYTES-REFLEX NEGATIVE (Negative); URINE NITRITE-REFLEX NEGATIVE (Negative); URINE PROTEIN NEGATIVE (Negative); URINE SPECIFIC GRAVITY 1.025 (1.005-1.030); URINE UROBILINOGEN 0.2 E.U./dl (0.2-1.0)
[2019-11-18 05:11] LABS: AMP/METHAMP POSITIVE (Negative); BARBITURATES Negative (Negative); BENZODIAZEPINES Negative (Negative); COCAINE Negative (Negative); METHADONE Negative (Negative); OPIATES POSITIVE (Negative); PCP Negative (Negative); THC Negative (Negative)
== END 2019-11-18 05:10 | disposition left against medical advice (07) ==
LOC: M.ERS 04:46
PROVIDERS: Emergency Medicine
DX: T50.992A Poisoning by other drugs, medicaments and biological substances, intentional self-harm, initial encounter (principal); J45.909 Unspecified asthma, uncomplicated; Z90.89 Acquired absence of other organs; Z98.890 Other specified postprocedural states; Z90.49 Acquired absence of other specified parts of digestive tract; Z86.14 Personal history of Methicillin resistant Staphylococcus aureus infection; Z88.6 Allergy status to analgesic agent; Z88.5 Allergy status to narcotic agent; Z88.0 Allergy status to penicillin; Z79.899 Other long term (current) drug therapy; Z88.8 Allergy status to other drugs, medicaments and biological substances; Y92.89 Other specified places as the place of occurrence of the external cause

== ENCOUNTER 2020-01-19 12:03 | Emergency (ER) | payer OTHER ==
[~2020-01-19] VITALS: Ht 160 cm; Wt 64.4 kg
[2020-01-19] MEDS ORDERED: ADDERALL 30 MG30 MG PO (12:16)
[2020-01-19] MEDS ORDERED: CLONAZEPAM2 MG PO (12:16)
[2020-01-19] MEDS ORDERED: LEXAPRO20 MG PO (12:16)
[2020-01-19 12:50] VITALS: BP 169/88
== END 2020-01-19 12:51 | disposition left against medical advice (07) ==
LOC: M.ERS 12:03
DX: L02.414 Cutaneous abscess of left upper limb (principal); F19.10 Other psychoactive substance abuse, uncomplicated; J45.909 Unspecified asthma, uncomplicated; Z90.49 Acquired absence of other specified parts of digestive tract; Z98.890 Other specified postprocedural states; Z86.14 Personal history of Methicillin resistant Staphylococcus aureus infection; Z91.010 Allergy to peanuts; Z88.0 Allergy status to penicillin; Z88.6 Allergy status to analgesic agent; Z88.8 Allergy status to other drugs, medicaments and biological substances

== ENCOUNTER 2021-02-14 11:09 | Emergency (ER) | payer MEDICAID ==
[~2021-02-14] VITALS: Ht 157.5 cm; Wt 62.6 kg
[~2021-02-14 11:09] MED LIST changes: +ADDERALL 30 MG30 MG PO; +CLONAZEPAM2 MG PO; +LEXAPRO20 MG PO
[2021-02-14 11:36] LABS: ABSOLUTE EOSINOPHILS 0.4 thou/uL (0.0-0.7); ABSOLUTE LYMPHOCYTES 2.9 thou/uL (0.8-5.3); ABSOLUTE MONOCYTES 0.5 thou/uL (0.0-1.2); ABSOLUTE NEUTROPHILS 2.7 thou/uL (1.6-8.1); BASOPHILS 0.6 %; EOSINOPHILS 6.3 %; HEMATOCRIT 46.7 % (37.0-47.0); HEMOGLOBIN 15.6 gm/dL (12.0-15.0); LYMPHOCYTES 44.2 %; MCH 30.6 pg (26.0-34.0); MCHC 33.4 g/dL (28.0-37.0); MCV 91.6 fL (80.0-100.0); MONOCYTES 7.5 %; MPV 8.5 fl. (7.2-11.1); NUCLEATED RBCS 0 /100WBC; PLATELET COUNT* 297 thou/uL (150-400); POLYS 41.4 %; RDW-CV 13.3 % (10.5-14.5); WBC 6.5 thou/uL (4.0-11.0)
[2021-02-14 11:44] LABS: CALCIUM 9.4 mg/dL (8.5-10.1); CREATININE 0.8 mg/dL (0.6-1.3); POTASSIUM 3.5 mmol/L (3.5-5.1)
[2021-02-14 11:51] LABS: SALICYLATE < 2.8 mg/dL (2.8-20.0)
[2021-02-14 11:52] LABS: ACETAMINOPHEN < 2 ug/mL (10-30); ALCOHOL < 10 mg/dL (<10)
[2021-02-14 11:57] LABS: TOTAL BILIRUBIN 0.4 mg/dL (<0.1-1.0); TOTAL PROTEIN 7.9 g/dL (6.4-8.2)
[2021-02-14 12:36] LABS: URINE BLOOD NEGATIVE (Negative); URINE CLARITY CLEAR; URINE COLOR YELLOW; URINE GLUCOSE-RANDOM NEGATIVE (Negative); URINE KETONES NEGATIVE (Negative); URINE LEUKOCYTES-REFLEX NEGATIVE (Negative); URINE NITRITE-REFLEX NEGATIVE (Negative); URINE PROTEIN 1+ (Negative); URINE SPECIFIC GRAVITY >= 1.030 (1.005-1.030)
[2021-02-14 12:38] LABS: ICTOTEST (BILI CONFIRMATORY) Negative (Negative); URINE BILIRUBIN 1+ (Negative)
[2021-02-14 12:42] LABS: AMP/METHAMP POSITIVE (Negative); BARBITURATES Negative (Negative); BENZODIAZEPINES POSITIVE (Negative); COCAINE Negative (Negative); METHADONE Negative (Negative); OPIATES Negative (Negative); PCP Negative (Negative); THC Negative (Negative)
[2021-02-15] MEDS ORDERED: TYLENOL EXTRA500 MG PO (09:45)
[2021-02-15] MEDS ORDERED: OXYCODONE HCL 55 MG PO (09:45)
[2021-02-15] MEDS ORDERED: IBU800 MG PO (09:48)
[2021-02-15 10:31] VITALS: BP 103/46
--- NOTE | 2021-02-16 13:41 | EKG ---
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 02/16/21 1341 1115 1115 René Garland MD, [facility] /EPI
== END 2021-02-15 10:32 ==
LOC: M.ERS 11:09
PROVIDERS: Family Medicine
DX: T42.4X2A Poisoning by benzodiazepines, intentional self-harm, initial encounter (principal); Z20.822 Contact with and (suspected) exposure to COVID-19; M32.9 Systemic lupus erythematosus, unspecified; J45.909 Unspecified asthma, uncomplicated; Z88.6 Allergy status to analgesic agent; Z88.0 Allergy status to penicillin; Z88.5 Allergy status to narcotic agent; Z91.010 Allergy to peanuts; Z90.89 Acquired absence of other organs; Z98.890 Other specified postprocedural states; Z90.49 Acquired absence of other specified parts of digestive tract; Z86.14 Personal history of Methicillin resistant Staphylococcus aureus infection; Y92.89 Other specified places as the place of occurrence of the external cause

== ENCOUNTER 2021-05-18 15:18 | Emergency (ER) | payer MEDICAID ==
[~2021-05-18] VITALS: Ht 160 cm; Wt 65.8 kg
[~2021-05-18 15:18] MED LIST changes: +IBU800 MG PO; +OXYCODONE HCL 55 MG PO; +TYLENOL EXTRA500 MG PO
[2021-05-18] MEDS ORDERED: XANAX1 MG PO (15:27)
[2021-05-18] MEDS ORDERED: ACYCLOVIR 200200 MG PO (15:28)
[2021-05-18 16:35] LABS: ABSOLUTE EOSINOPHILS 0.3 thou/uL (0.0-0.7); ABSOLUTE LYMPHOCYTES 1.4 thou/uL (0.8-5.3); ABSOLUTE MONOCYTES 0.6 thou/uL (0.0-1.2); ABSOLUTE NEUTROPHILS 3.6 thou/uL (1.6-8.1); BASOPHILS 0.3 %; EOSINOPHILS 4.8 %; HEMATOCRIT 42.4 % (37.0-47.0); HEMOGLOBIN 14.4 gm/dL (12.0-15.0); LYMPHOCYTES 23.5 %; MCH 30.2 pg (26.0-34.0); MCV 88.8 fL (80.0-100.0); MONOCYTES 10.3 %; MPV 8.5 fl. (7.2-11.1); NUCLEATED RBCS 0 /100WBC; PLATELET COUNT* 258 thou/uL (150-400); POLYS 61.1 %; RBC 4.77 mil/uL (4.20-5.00); RDW-CV 13.4 % (10.5-14.5); WBC 5.8 thou/uL (4.0-11.0)
[2021-05-18 16:48] LABS: CALCIUM 8.6 mg/dL (8.5-10.1); CREATININE 0.7 mg/dL (0.6-1.3)
[2021-05-18 16:54] LABS: ALBUMIN 3.5 g/dL (3.4-5.0); TOTAL BILIRUBIN 0.4 mg/dL (<0.1-1.0); TOTAL PROTEIN 7.6 g/dL (6.4-8.2)
[2021-05-18 18:31] LABS: CSF GLUCOSE 70 mg/dl (40-70); CSF PROTEIN 26.7 mg/dl (15-45)
[2021-05-18 19:34] LABS: CSF CLARITY CLEAR; CSF COLOR COLORLESS; CSF RBC 0 /mm3; CSF WBC 1.1 /mm3 (0-10)
[2021-05-18 19:38] LABS: VOLUME 11 ml
[2021-05-18 19:38] LABS: URINE BILIRUBIN NEGATIVE (Negative); URINE BLOOD NEGATIVE (Negative); URINE CLARITY CLEAR; URINE COLOR YELLOW; URINE GLUCOSE-RANDOM NEGATIVE (Negative); URINE KETONES NEGATIVE (Negative); URINE LEUKOCYTES-REFLEX NEGATIVE (Negative); URINE NITRITE-REFLEX NEGATIVE (Negative); URINE PROTEIN NEGATIVE (Negative); URINE SPECIFIC GRAVITY 1.015 (1.005-1.030)
[2021-05-18 19:47] LABS: AMP/METHAMP POSITIVE (Negative); BARBITURATES Negative (Negative); BENZODIAZEPINES POSITIVE (Negative); COCAINE Negative (Negative); METHADONE Negative (Negative); OPIATES Negative (Negative); PCP Negative (Negative); THC Negative (Negative)
[2021-05-18] MEDS ORDERED: CEFDINIR300 MG PO (20:52)
[2021-05-18 21:01] VITALS: BP 100/60
== END 2021-05-18 21:01 | disposition still patient (30) ==
LOC: M.ERS 15:18
PROVIDERS: Emergency Medicine Emergency Medical Services; Nurse Practitioner Family; Personal Emergency Response Attendant
DX: M54.2 Cervicalgia (principal); Z20.822 Contact with and (suspected) exposure to COVID-19; H92.01 Otalgia, right ear; J32.9 Chronic sinusitis, unspecified; M54.9 Dorsalgia, unspecified; J45.909 Unspecified asthma, uncomplicated; Z98.890 Other specified postprocedural states; Z90.49 Acquired absence of other specified parts of digestive tract; Z88.5 Allergy status to narcotic agent; Z88.6 Allergy status to analgesic agent; Z91.010 Allergy to peanuts; Z88.0 Allergy status to penicillin; Z88.8 Allergy status to other drugs, medicaments and biological substances